=== PATIENT | female | born 1980 | race Caucasian/White ===

== ENCOUNTER 2016-10-26 04:33 | Emergency (ER) | payer OTHER ==
[~2016-10-26 04:33] MED LIST: KEFLEX500 M2; NO MEDICATIONS
== END 2016-10-26 05:09 | disposition home or self-care (01) ==
LOC: SED 04:33
DX: S09.90XA Unspecified injury of head, initial encounter (principal); S01.01XA Laceration without foreign body of scalp, initial encounter; F17.200 Nicotine dependence, unspecified, uncomplicated; Z88.5 Allergy status to narcotic agent; Z23 Encounter for immunization; W18.09XA Striking against other object with subsequent fall, initial encounter; Y92.009 Unspecified place in unspecified non-institutional (private) residence as the place of occurrence of the external cause
CPT/HCPCS: 12001; 90471; 90715; 99283

== ENCOUNTER 2016-11-01 20:14 | Emergency (ER) | payer OTHER | END 2016-11-01 20:46 | disposition home or self-care (01) | LOC: SED 20:14 | DX: S01.01XD Laceration without foreign body of scalp, subsequent encounter (principal); F17.210 Nicotine dependence, cigarettes, uncomplicated; Z88.5 Allergy status to narcotic agent | CPT/HCPCS: 99281 ==

== ENCOUNTER 2017-05-15 16:05 | Emergency (ER) | payer OTHER | END 2017-05-15 18:20 | disposition home or self-care (01) | LOC: SED 16:05 | DX: L23.7 Allergic contact dermatitis due to plants, except food (principal); F17.210 Nicotine dependence, cigarettes, uncomplicated | CPT/HCPCS: 99282 ==